=== PATIENT | female | born 1985 | race Caucasian/White ===

== ENCOUNTER 2017-07-26 11:42 | Emergency (ER) | payer OTHER ==
[2017-07-26] MEDS: BUPIVACAINE HCL 0.5% 10 ML VIAL SC (13:45)
[2017-07-26] MEDS: LIDOCAINE 2% MDV 20 ML VIAL SC (13:45)
[2017-07-26] MEDS: AUGMENTIN 875 MG TAB PO (16:12)
[2017-07-26] MEDS: ADACEL/BOOSTRIX VACCINE (DIPHTH/PERTUSS/ACELL/TETANUS)0.5ML SYR (90715) IM (16:12)
== END 2017-07-26 16:23 | disposition home or self-care (01) ==
LOC: M ED 11:42
DX: S61.411A Laceration without foreign body of right hand, initial encounter (principal); W26.8XXA Contact with other sharp object(s), not elsewhere classified, initial encounter; Y92.89 Other specified places as the place of occurrence of the external cause; F17.200 Nicotine dependence, unspecified, uncomplicated
CPT/HCPCS: 90715